=== PATIENT | male | born 1980 | race Caucasian/White ===

== ENCOUNTER 2020-05-06 17:51 | Inpatient (IN) | payer OTHER, SELFPAY ==
[~2020-05-06] VITALS: Ht 167.6 cm; Wt 63.5 kg
[2020-05-06 18:00] VITALS: BP 109/53
--- NOTE | 2020-05-06 18:05 | NUR ---
Pt ambulated to bed 3.
--- NOTE | 2020-05-06 18:13 | NUR ---
39 Y/O MALE C/O FATIGUE/ WEAKNESS/ PALPITATIONS X 1 WEEK PT DENIES PAIN. PT REFFERED HERE FROM URGENT CARE FOR HGB LEVELS AT 5. PT STATES HE WAS HAVING HEAVY RECTAL BLEEDING ABOUT [id number], TODAY LIGHT BLEEDING. PT ABDOMEN IS SOFT, FLAT, NON-TENDER BOWEL SOUNDS ACTIVE X4. LAST BM 05/06/20. PT DENIES N/V, DENIES FEVER/CHILLS. DENIES PMH NKA
--- NOTE | 2020-05-06 18:18 | NUR ---
environmental technician at pt bedside.
[2020-05-06 18:30] LABS: WHITE BLOOD COUNT (AUTO) 3.2 K/uL (4.8-10.8)
[2020-05-06 18:39] LABS: MEAN CORPUSCULAR HEMOGLOBIN 18 pg (27-31); MEAN CORPUSCULAR HGB CONC 29 g/dL (33-37); MEAN CORPUSCULAR VOLUME 60.9 fL (80-94); PLATELET COUNT (AUTO) 249 K/uL (140-450); RED BLOOD CELL COUNT(AUTO) 3.09 MIL/uL (4.20-6.10); RED CELL DISTRIBUTION WIDTH 17.7 % (11.6-13.7)
[2020-05-06 18:45] LABS: ALBUMIN 3.8 g/dL (3.4-5.0); CREATININE 0.8 mg/dL (0.6-1.3); TOTAL BILIRUBIN 0.3 mg/dL (0.0-1.0)
[2020-05-06 18:53] LABS: HEMOGLOBIN 5.5 g/dL (12.0-18.0)
[2020-05-06 18:54] LABS: HEMATOCRIT 18.8 % (36-52)
[2020-05-06] MEDS ORDERED: NACL 0.9% 1,000 ML IV ONE (18:55)
[2020-05-06] MEDS ORDERED: PANTOPRAZOLE 40 MG INJ VIAL IVP ONE (18:55)
[2020-05-06] MEDS ORDERED: MORPHINE SULFATE 2 MG/ML SYR IVP PRN (19:25)
[2020-05-06] MEDS ORDERED: LORazepam 2 MG/ML VIAL IM/IVP PRN (19:25)
[2020-05-06] MEDS ORDERED: ACETAMINOPHEN 325 MG TAB PO PRN (19:25)
[2020-05-06] MEDS ORDERED: ZOLPIDEM 5 MG TAB PO PRN (19:25)
[2020-05-06] MEDS ORDERED: DOCUSATE SODIUM 100 MG GELCAP PO PRN (19:25)
[2020-05-06] MEDS ORDERED: HYDROcodone/APAP 5/325 MG 1 TAB TAB PO PRN (19:25)
[2020-05-06] MEDS ORDERED: ONDANSETRON 4 MG/2 ML VIAL IVP PRN (19:25)
--- NOTE | 2020-05-06 19:28 | NUR ---
Gave report to DIANELYS [place], transfer of care at this time.
--- NOTE | 2020-05-06 19:38 | NUR ---
KAYCE MANCILLA SENT TO LAB
--- NOTE | 2020-05-06 19:40 | NUR ---
RECEIVED IN BED 3 AWAKE AND ALERT. DENIES PAIN OR DISCOMFORT. 20G SL INTACT TO RIGHT A/C, BLOOD TRANSFUSION CONSENT SIGNED
[2020-05-06 19:44] LABS: PROTHROMBIN TIME 10.1 secs (10.8-13.4)
[2020-05-06 19:48] LABS: LYMPHOCYTES % (MANUAL) 8 % (20-46); MONOCYTES % (MANUAL) 1 % (5-12)
[2020-05-06 20:41] LABS: FREE T4 (FREE THYROXINE) 0.87 ng/dL (0.76-1.46); MAGNESIUM 2.1 mg/dL (1.8-2.4); PHOSPHORUS 3.3 mg/dL (2.5-4.9); THYROID STIMULATING HORMONE 0.53 uIU/mL (0.34-3.74)
--- NOTE | 2020-05-06 20:50 | NUR ---
ROOM AVAILABLE, 119B. REPORT CALLED TO DIANELYS WANG
--- NOTE | 2020-05-06 21:05 | NUR ---
to room 119B. Belongings list completed. Report to DIANELYS WANG. PC'S CONTINUE WITH NO ADVERSE RXN NOTED. ATTACHED TO DISPOSITION CLERK ACCOMPANIED BY JEAN CLAUDE AND RN
[2020-05-06 21:15] VITALS: BP 117/69
--- NOTE | 2020-05-06 21:15 | NUR ---
PT ARRIVED TO THE UNIT VIA GURNEY WITH TECH AND WEB CONSULTANT AT BEDSIDE. PT AMBULATED TO THE BED, GAIT WAS STEADY. TELE BOX PLACED ON PT. A&OX4, SPEAKING APPROPRIATELY. [place]ORE[place] SPEAKING, BUT UNDERSTANDS SOME [place]. BREATHING IS UNLABORED ON RA. O2 SAT IS 100%. NO RESPIRATORY DISTRESS NOTED. PT DENIES ANY PAIN. ABDOMEN IS SOFT AND NONTENDER. BOWEL SOUNDS ARE PRESENT IN ALL QUADRANTS. PT STATES HE HAS HAD RECTAL BLEEDING FOR 6 MONTHS BUT CONTINUOUSLY FOR THE PAST 2 WEEKS. PT ALSO STATES HE HAD A BM ABOUT 4 HOURS AGO. SKIN IS WARM, DRY, AND INTACT. IV IS IN THE RIGHT AC 20 GAUGE WITH ONE UNIT OF PRBC INFUSING. NO DISTRESS NOTED. WILL CONTINUE TO MONITOR PT. PLAN OF CARE DISCUSSED.
--- NOTE | 2020-05-06 23:31 | NUR ---
ONE UNIT OF BLOOD JUST FINISHED TRANSFUSING. PT DENIES ANY CHILLS, BACK PAIN, NAUSEA, OR RESPIRATORY DISTRESS. BP WAS 115/61, HR 78, RR 20, TEMP 98.4 F, AND 0 FOR PAIN. PT IS STABLE. WILL GO TO LAB TO RETRIEVE THE SECOND UNIT OF BLOOD TO TRANSFUSE.
[2020-05-07] VITALS: BP 115/61
--- NOTE | 2020-05-07 | NUR ---
SECOND UNIT OF PRBC HAS BEEN STARTED THROUGH THE RIGHT AC 20 GAUGE IV. IV IS PATENT AND FLUSHING. BP IS 114/63, HR 80, O2 SAT 100%, RR 18, AND TEMP0 98.1 F. PT IS STABLE. EDUCATION WAS PROVIDED ON NOTIFYING RN IF THE PATIENT FEELS ANY SOB, PAIN, ITCHING, SWELLING, OR BACK ACHES. PT VERBALIZED UNDERSTANDING.
--- NOTE | 2020-05-07 01:25 | NUR ---
BLOOD TRANSFUSION IS STILL INFUSING. THE INFUSION IS ABOUT [facility] DONE. PT IS SLEEPING IN SEMI FOWLERS POSITION. PT DOES NOT APPEAR TO HAVE ANY DISTRESS, CURRENTLY SNORING. VS ARE STABLE.
--- NOTE | 2020-05-07 02:35 | NUR ---
BLOOD TRANSFUSION IS FINISHED. PT IS STABLE AT THIS TIME. DENIES ANY BACK PAIN, ITCHING, SWELLING, OR RESPIRATORY DISTRESS. WILL CONTINUE TO MONITOR PT.
--- NOTE | 2020-05-07 03:00 | NUR ---
PT WAS INFORMED ABOUT THE CT ANGIO OF THE ABDOMEN AND PELVIS. PT ANSWERED THE QUESTIONS ON THE CONTRAST QUESTIONNAIRE. PT SIGNED THE CONSENT AND VERBALIZED UNDERSTANDING.
[2020-05-07] MEDS: DEXT 5% / NACL 0.45% 1,000 ML IV SCH ×3 (03:04→21:04)
[2020-05-07 04:00] VITALS: BP 105/66
--- NOTE | 2020-05-07 05:00 | NUR ---
PT IS ASLEEP, BUT EASILY AWOKEN BY NOISE. PT IS SPEAKING APPROPRIATELY. NO RESPIRATORY DISTRESS NOTED. PT DENIES ANY PAIN. SKIN IS WARM AND DRY. IV IS PATENT AND INFUSING ORDERED. WILL CONTINUE TO MONITOR.
[2020-05-07 05:20] LABS: BASOPHILS % (AUTO) 0.6 % (0.0-2.0); EOSINOPHILS % (AUTO) 0.8 % (0.0-4.0); HEMATOCRIT 23.5 % (36-52); HEMOGLOBIN 7.2 g/dL (12.0-18.0); LYMPHOCYTES # (AUTO) 1.6 K/uL (2.0-11.5); LYMPHOCYTES % (AUTO) 28.1 % (20.5-51.1); MEAN CORPUSCULAR HEMOGLOBIN 20 pg (27-31); MEAN CORPUSCULAR HGB CONC 31 g/dL (33-37); MONOCYTES # (AUTO) 0.5 K/uL (0.8-1.0); MONOCYTES % (AUTO) 8.8 % (1.7-9.3); NEUTROPHILS # (AUTO) 3.4 K/uL (1.8-7.7); NEUTROPHILS % (AUTO) 61.7 % (42.2-75.2); PLATELET COUNT (AUTO) 221 K/uL (140-450); RED BLOOD CELL COUNT(AUTO) 3.62 MIL/uL (4.20-6.10); RED CELL DISTRIBUTION WIDTH 21.2 % (11.6-13.7); WHITE BLOOD COUNT (AUTO) 5.5 K/uL (4.8-10.8)
[2020-05-07 05:56] LABS: CARBON DIOXIDE 24.6 mmol/L (21-32); CREATININE 0.7 mg/dL (0.6-1.3); POTASSIUM 3.6 mmol/L (3.5-5.1)
[2020-05-07 05:59] LABS: MAGNESIUM 2.2 mg/dL (1.8-2.4); PHOSPHORUS 3.5 mg/dL (2.5-4.9)
--- NOTE | 2020-05-07 06:30 | NUR ---
PT IS SLEEPING. BREATHING IS UNLABORED. CHEST RISE AND FALL IS SYMMETRICAL. NO DISTRESS NOTED. WILL CONTINUE TO MONITOR.
--- NOTE | 2020-05-07 07:15 | NUR ---
ENDORSED PT TO DAY SHIFT NURSE FOR CONTINUITY OF CARE. PT IS STABLE AT THIS TIME. PLAN OF CARE DISCUSSED.
--- NOTE | 2020-05-07 07:16 | NUR ---
RECEIVED TRANSFER OF CARE REPORT FROM NIGHT RN FOR CONTINUATION OF CARE.
--- NOTE | 2020-05-07 07:17 | NUR ---
PT FOUND AWAKE RESTING IN BED. PT STATES NO PAIN,L NO DISTRESS, AND NO MEDICAL COMPLAINTS. PT HAS VISIBLE EQUAL RISE AND FALL UPON RESPIRATION. BED LOCKED IN LOWEST POSITION WITH 2 SIDE RAILS UP FOR SAFETY AND CALL LIGHT WITHIN REACH.
[2020-05-07 08:00] VITALS: BP 106/73
--- NOTE | 2020-05-07 08:54 | NUR ---
PATIENT HAS BEEN SCREENED AND CATEGORIZED LOW NUTRITION RISK. PATIENT WILL BE SEEN WITHIN 7 DAYS OF ADMISSION. 05/13/[address]
[2020-05-07] MEDS ORDERED: PANTOPRAZOLE 40 MG INJ VIAL IVP ONE (09:00)
[2020-05-07 10:21] LABS: GAMMA GLUTAMYL TRANSFERASE 28 U/L (7-51); IRON, SERUM 10 ug/dl (50-175)
--- NOTE | 2020-05-07 11:14 | NUR ---
PT FOUND AWAKE RESTING IN SEMI-CID'S POSITION IN BED. PT STATES NO PAIN, NO DISTRESS, AND NO MEDICAL COMPLAINTS. PT HAS VISIBLE EQUAL RISE AND FALL UPON RESPIRATION. BED LOCKED IN LOWEST POSITION WITH 2 SIDE RAILS UP FOR SAFETY AND CALL LIGHT WITHIN REACH.
[2020-05-07 12:00] VITALS: BP 111/74
[2020-05-07] MEDS ORDERED: POTASSIUM CHLORIDE 20% 40 MEQ/15 ML UDC GT SCH (12:00)
--- NOTE | 2020-05-07 12:00 | NUR ---
SOCIAL WORK NOTE: Patient's Orientation Person Situation Place Time Information Provided By PATIENT Comments SW MET WITH PATIENT AT BEDSIDE BUT PATIENT SPOKE GREEK. SW CONTACTED PATIENT'S CELL PHONE: [phone] WITH STONE LATHE OPERATOR DIANE [id number]. Director Of Nurses Registry, Realtionship and Phone Number DARRIN REED [phone] Healthcare Power of Public Works Manager No Does Patient Have a POLST No Identifying Problems No Social Work Triggers Is A Social Work Consult Needed No Mandate Report Filed No Explanation Of Identifying Problems PATIENT IS A 39-YEAR-OLD MALE ADMITTED FOR LOW GI BLEED AND ANEMIA. PATIENT HAS NO REPORTED PMHX. PATIENT DENIED SUBSTANCE ABUSE AND MENTAL HEALTH HX. Admitted From Home Pre-Admission Level Of Functioning Status Independent/Ambulatory Prior Resources/Services Used In Last 12 Months No Prior Resources Used Prior DME No Prior DME Used Dialysis Comments N/A Living Situation Lives With Family House Patient Had Caregiver No Home Support No Caregiver Issues Financial Issues No Known Financial Issue Referral To The Financial Counselor Needed No Factors/Needs No D/C Needs Identified Pt/Rep Participated In Discharge Plan Yes Patient/Family Agress With Discharge Plan Yes Discharge Plan Comments TENTATIVE DISCHARGE PLAN IS FOR PATIENT TO RETURN HOME. DC Plan Status Initiated
--- NOTE | 2020-05-07 12:20 | NUR ---
OR NURSES AT BEDSIDE TO TAKE PATIENT FOR EGD. WILL CONTINUE TO MONITOR WHEN PATIENT BACK ON UNIT.
[2020-05-07] MEDS ORDERED: fentaNYL citrate 0.05 MG/ML VIAL ONE (12:23)
[2020-05-07] MEDS ORDERED: MIDAZOLAM 2 MG/2 ML VIAL ONE (12:23)
[2020-05-07] MEDS ORDERED: diphenhydrAMINE 50 MG/ML VIAL ONE (12:23)
[2020-05-07] MEDS: MIDAZOLAM 2 MG/2 ML VIAL IVP ONE ×2 (12:37→13:08)
[2020-05-07] MEDS: fentaNYL citrate 0.05 MG/ML VIAL IVP ONE ×2 (12:37→13:07)
[2020-05-07] MEDS ORDERED: BOWEL EVACUANT DRINK 4,000 ML PDS PO SCH (13:00)
--- NOTE | 2020-05-07 13:47 | NUR ---
PT FOUND AWAKE RESTING IN BED. PT STATES NO PAIN AND NO DISTRESS. PT HAS VISIBLE EQUAL RISE AND FALL UPON RESPIRATION. PT O2 SATURATION IS 100% ON ROOM AIR. BED LOCKED IN LOWEST POSITION WITH 2 SIDE RAILS UP FOR SAFETY AND CALL LIGHT WITHIN REACH.
--- NOTE | 2020-05-07 14:08 | NUR ---
DC PLANNIN YRS OLD MALE PATIENT WAS ADMITTED FROM HOME WITH A DX OF LOW GI BLEED AND ANEMIA. PT HAS A HX OF HYPERLIPIDEMIA. H/H 5.5/18.8 AFTER TRANSFUSION H/H 7.2/12.[address] LAYTON PERFORMED EGD RESULTED NORMAL UPPER GI NO SOURCE OF GI BLEED AND NO PATHOLOGY OF ANY CONCERN. H PYLORIC NEGATIVE WELL . DC PLAN TO GO HOME WHEN STABLE CM TO FOLLOW
[2020-05-07] MEDS: LACTULOSE 20 GM/30 ML UDC PO SCH ×3 (14:19→21:04)
[2020-05-07] MEDS: SENNA 8.6 MG TAB PO SCH ×2 (14:19→16:39)
[2020-05-07] MEDS ORDERED: MAGNESIUM CITRATE 300 ML BTL PO SCH (15:00)
--- NOTE | 2020-05-07 15:42 | NUR ---
PT FOUND AWAKE RESTING IN BED. PT STATES NO PAIN, NO DISTRESS, AND NO MEDICAL COMPLAINTS. PT HAS VISIBLE EQUAL RISE AND FALL UPON RESPIRATION. BED LOCKED IN LOWEST POSITION WITH 2 SIDE RAILS UP FOR SAFETY AND CALL LIGHT WITHIN REACH.
[2020-05-07 16:00] VITALS: BP 120/81
--- NOTE | 2020-05-07 18:00 | NUR ---
PT FOUND ASLEEP RESTING IN SEMI-CID'S POSITION IN BED. PT HAS VISIBLE EQUAL RISE AND FALL UPON RESPIRATION. NO DISTRESS NOTED. BED LOCKED IN LOWEST POSITION WITH 2 SIDE RAILS UP FOR SAFETY AND CALL LIGHT WITHIN REACH.
--- NOTE | 2020-05-07 19:10 | NUR ---
RECEIVED BEDSIDE REPORT FROM DAY SHIFT NURSE, ERIKA IVORY, FOR CONTINUITY OF CARE. PT IS AWAKE AND ALERT, A&OX4. SPEAKING TAM[place] ON THE PHONE. NO APPARENT RESPIRATORY DISTRESS. ON RA WITH BREATHING UNLABORED. SR ON TELE MONITORING. PT IS AMBULATORY INDEPENDENTLY. SKIN IS WARM, DRY, AND INTACT. IV IS IN THE RIGHT AC 20 GAUGE RUNNING D5 1/2 NS AT 40 ML PER HOUR PER ORDER. PT IS STABLE. PT DENIES PAIN AT THIS TIME. PLAN OF CARE DISCUSSED. STANDARD PRECAUTIONS IN PLACE.
--- NOTE | 2020-05-07 19:20 | NUR ---
TRANSFER OF CARE REPORT PROVIDED TO NIGHT RN.
[2020-05-07 20:00] VITALS: BP 104/59
--- NOTE | 2020-05-07 21:35 | NUR ---
EDUCATION WAS PROVIDED ON IMPORTANCE OF FINISHING BOWEL PREP PRIOR TO COLONOSCOPY TOMORROW. PT HAS ABOUT 800 ML LEFT TO DRINK AND HE VERBALIZED UNDERSTANDING. PT WAS ALSO GIVEN EDUCATION ON BEING NPO EXCEPT MEDS AND PT VERBALIZED UNDERSTANDING. IV FLUIDS ARE INFUSING. IV IS PATENT AND FLUSHING. PT IS STABLE AT THIS TIME. ALL QUESTIONS ANSWERED.
--- NOTE | 2020-05-07 23:00 | NUR ---
ROUNDED ON PT. ENCOURAGE PT TO FINISH BOWEL PREP. PT VERBALIZED UNDERSTANDING. BREATHING IS UNLABORED. PT IS ON RA. IV FLUIDS ARE PATENT AND INFUSING ORDERED. NO DISTRESS NOTED AT THIS TIME.
[2020-05-08] VITALS: BP_SYST 103; BP_SYST 111; BP_DIAS 53; BP_DIAS 70
--- NOTE | 2020-05-08 | NUR ---
PT FINISHED THE REST OF THE BOWEL PREP LIQUID. PT HAS BEEN HAVING FREQUENT EPISODES OF DIARRHEA DUE TO THE BOWEL PREP. ALL LIQUIDS HAVE BEEN REMOVED FROM THE BEDSIDE. PT IS AWARE ABOUT BEING NPO. STILL WAITING FOR PT TO COLLECT URINE IN THE URINAL. PT IS AWARE AND VERBALIZED UNDERSTANDING.
--- NOTE | 2020-05-08 02:00 | NUR ---
PT IS ON THE PHONE, TALKING. NO PAIN OR DISTRESS NOTED. PT IS SITTING UPRIGHT IN BED. ON RA WITH BREATHING UNLABORED. IV FLUIDS ARE INFUSING ORDERED. PT IS STABLE AT THIS TIME,
[2020-05-08 04:00] VITALS: BP 101/63
--- NOTE | 2020-05-08 04:00 | NUR ---
MADE ROUNDS ON PT. HE IS ASLEEP. CHEST RISE AND FALL IS SYMMETRICAL. NO DISTRESS NOTED. PT IS STABLE. BED IN THE LOWEST POSITION AND CALL LIGHT WITHIN REACH.
[2020-05-08 05:57] LABS: BASOPHILS % (AUTO) 0.8 % (0.0-2.0); EOSINOPHILS # (AUTO) 0.1 K/uL (0-0.4); EOSINOPHILS % (AUTO) 1.1 % (0.0-4.0); HEMATOCRIT 25.8 % (36-52); HEMOGLOBIN 7.7 g/dL (12.0-18.0); LYMPHOCYTES % (AUTO) 40.5 % (20.5-51.1); MEAN CORPUSCULAR HEMOGLOBIN 20 pg (27-31); MEAN CORPUSCULAR HGB CONC 30 g/dL (33-37); MEAN CORPUSCULAR VOLUME 65.6 fL (80-94); MONOCYTES # (AUTO) 0.4 K/uL (0.8-1.0); MONOCYTES % (AUTO) 9.1 % (1.7-9.3); NEUTROPHILS # (AUTO) 2.4 K/uL (1.8-7.7); NEUTROPHILS % (AUTO) 48.5 % (42.2-75.2); PLATELET COUNT (AUTO) 243 K/uL (140-450); RED BLOOD CELL COUNT(AUTO) 3.93 MIL/uL (4.20-6.10); RED CELL DISTRIBUTION WIDTH 21.7 % (11.6-13.7); WHITE BLOOD COUNT (AUTO) 4.9 K/uL (4.8-10.8)
--- NOTE | 2020-05-08 06:00 | NUR ---
INSTRUCTED PT TO VOID IN THE URINE SAMPLE CUP BECAUSE THE DOCTOR PLACED AN ORDER FOR URINE. PT VOIDED IN THE CUP AFTER TEN MINUTES AND THE SAMPLE WAS SENT TO THE LAB. PT IS STABLE. DENIES ANY PAIN.
[2020-05-08 06:15] LABS: ANION GAP 12.7 (8-16); CREATININE 0.7 mg/dL (0.6-1.3); POTASSIUM 3.7 mmol/L (3.5-5.1)
[2020-05-08 06:26] LABS: APPEARANCE,URINE CLEAR (CLEAR); BILIRUBIN,URINE NEGATIVE (NEGATIVE); BLOOD, URINE NEGATIVE (NEGATIVE); COLOR,URINE YELLOW (YELLOW); LEUKOCYTE ESTERASE ,URINE NEGATIVE (NEGATIVE); NITRITE, URINE NEGATIVE (NEGATIVE); UGLUCOSE NEGATIVE (NEGATIVE)
[2020-05-08 06:32] LABS: BARBITURATE, URINE NEGATIVE ng/ml (NEG <=200); BENZODIAZEPINE, URINE NEGATIVE ng/mL (NEG <=200); CANNABINOID, URINE NEGATIVE ng/mL (NEG <=50); COCAINE, URINE NEGATIVE ng/mL (NEG <=300); OPIATE, URINE NEGATIVE ng/mL (NEG <=2000); PHENCYCLIDINE SCREEN,URINE NEGATIVE ng/mL (NEG <=25)
--- NOTE | 2020-05-08 07:10 | NUR ---
ENDORSED PT TO DAY SHIFT NURSE FOR CONTINUITY OF CARE. PT IS STABLE AT THIS TIME. PLAN OF CARE DISCUSSED.
--- NOTE | 2020-05-08 07:12 | NUR ---
RECEIVED REPORT FROM NIGHT NURSE FOR CONTINUITY OF CARE. PT IS STABLE. PT AAOX4 AMERICAN SPEAKING. PT ON ROOM AIR, NO SIGNS OF DISTRESS NOTED. PT HAS RAC 20G INFUSING D5 1/2N AT 40 ML/H. SKIN INTACT. SAFETY MEASURES IN PLACE, WILL CONTINUE TO MONITOR
[2020-05-08 08:00] VITALS: BP 114/73
[2020-05-08 08:07] LABS: FOLIC ACID > 20.00 ng/mL (>3.0)
[2020-05-08] MEDS: LACTULOSE 20 GM/30 ML UDC PO SCH ×4 (08:18→20:02)
[2020-05-08] MEDS: SENNA 8.6 MG TAB PO SCH ×3 (08:20→17:00)
--- NOTE | 2020-05-08 08:21 | NUR ---
ADMINISTERED SCHEDULED MEDICATION, MEDICATION EDUCATION PROVIDED. PT TOLERATED WELL. PT IS STABLE, WILL CONTINUE TO MONITOR.
[2020-05-08 09:24] LABS: FERRITIN 1 ng/mL (30 - 400); TRANSFERRIN 437 mg/dL (200 - 370)
--- NOTE | 2020-05-08 10:47 | NUR ---
PT OFF UNIT FOR PROCEDURE
[2020-05-08] MEDS ORDERED: MIDAZOLAM 5 MG/5 ML VIAL ONE (11:11)
[2020-05-08] MEDS ORDERED: fentaNYL citrate 0.05 MG/ML VIAL ONE (11:11)
[2020-05-08] MEDS ORDERED: diphenhydrAMINE 50 MG/ML VIAL ONE (11:11)
[2020-05-08] MEDS ORDERED: fentaNYL citrate 0.05 MG/ML VIAL IVP ONE (12:00)
[2020-05-08] MEDS ORDERED: MIDAZOLAM 2 MG/2 ML VIAL IVP ONE (12:00)
[2020-05-08] MEDS ORDERED: SIMETHICONE 40 MG/0.6 ML PO ONE (12:00)
[2020-05-08 12:15] VITALS: BP 98/64
[2020-05-08] MEDS ORDERED: SIMETHICONE 40 MG/0.6 ML ONE (13:11)
--- NOTE | 2020-05-08 13:30 | NUR ---
ADMINISTERED SCHEDULED MEDICATION, MEDICATION EDUCATION PROVIDED. PT TOLERATED WELL. PT IS STABLE, WILL CONTINUE TO MONITOR
--- NOTE | 2020-05-08 14:56 | NUR ---
BY STANDING BY BED. PT IS STABLE, WILL CONTINUE TO MONITOR.
[2020-05-08 16:00] VITALS: BP 108/57
--- NOTE | 2020-05-08 16:16 | NUR ---
RECEIVED TORB FOR PT TO HAVE REGULAR HIGH FIBER DIET. WILL INPUT ORDER.
[2020-05-08] MEDS: DEXT 5% / NACL 0.45% 1,000 ML IV SCH (17:20)
--- NOTE | 2020-05-08 17:22 | NUR ---
ADMINISTERED SCHEDULED FLUIDS, MEDS EDUCATION PROVIDED. PT TOLERATED WELL. PT IS STABLE, WILL CONTINUE TO MONITOR.
--- NOTE | 2020-05-08 19:30 | NUR ---
RECEIVED REPORT FROM REJI GOTTI. PT AOX4 ON ROOM AIR. NO S/S RESPIRATORY DISTRESS. NO C/O PAIN AT THIS TIME. IV SITE RAC 20G PATENT INTACT, INFUSING D5 1/2 NS @ 40ML/HR. SAFETY MEASURES IN PLACE. CALL LIGHT WITHIN REACH. WILL CONTINUE TO MONITOR
[2020-05-08 20:00] VITALS: BP 106/63
--- NOTE | 2020-05-08 20:03 | NUR ---
ADMINISTERED SCHEDULED MEDICATION, EDUCATION PROVIDED. NO DISTRESS NOTED. WILL CONTINUE TO MONITOR
[2020-05-09] VITALS: BP 103/58
--- NOTE | 2020-05-09 01:00 | NUR ---
PATIENT RESTING IN BED. DENIES PAIN, DENIES DISCOMFORT. RESPIRATIONS EVEN UNLABORED. NO S/S ACUTE DISTRESS NOTED. BED IN LOW POSITION. CALL LIGHT WITHIN REACH. WILL CONTINUE TO MONITOR
--- NOTE | 2020-05-09 03:05 | NUR ---
PATIENT ASLEEP IN BED. RESPIRATIONS EVEN UNLABORED. NO S/S ACUTE DISTRESS NOTED. CALL LIGHT WITHIN REACH. WILL CONTINUE TO MONITOR
[2020-05-09 04:00] VITALS: BP 98/57
--- NOTE | 2020-05-09 07:15 | NUR ---
ENDORSED PATIENT TO DAY RN FOR CONTINUITY OF CARE. PATIENT IS IN STABLE CONDITION
--- NOTE | 2020-05-09 07:20 | NUR ---
PT RECEIVED FROM BI TESTER RN. PT IN STABLE CONDITION. IV ON LEFT AC IS CLEAR DRY PATENT AND INTACT. NO S/S OF DISTRESS. CALL LIGHT IS WITHIN REACH. ALL SAFETY MEASURES ARE IN PLACE WILL CONTINUE TO MONITOR.
[2020-05-09 08:00] VITALS: BP 108/68
[2020-05-09] MEDS: LACTULOSE 20 GM/30 ML UDC PO SCH (08:53)
[2020-05-09] MEDS: SENNA 8.6 MG TAB PO SCH (08:53)
--- NOTE | 2020-05-09 09:30 | NUR ---
MEDICATIONS GIVEN PER MD ORDER. PT VERBALIZED UNDERSTANDING. PT TOLERATED WELL. NO ADVERSE REACTIONS. NO S/S OF DISTRESS AT THIS TIME.CALL LIGHT IS WITHIN REACH. ALL SAFETY MEASURES ARE IN PLACE WILL CONTINUE TO MONITOR.
--- NOTE | 2020-05-09 10:33 | NUR ---
PT RESTING IN BED. UPDATED BY DR. CHAPA ON PLAN OF CARE. PATIENT VERBALIZED UNDERSTANDING. NO S/S OF DISTRESS AT THIS TIME.CALL LIGHT IS WITHIN REACH. ALL SAFETY MEASURES ARE IN PLACE WILL CONTINUE TO MONITOR.
[2020-05-09 10:36] VITALS: BP 108/68
[2020-05-09] MEDS ORDERED: PSYL0.4C2 PO (10:57)
[2020-05-09] MEDS ORDERED: FERR325E14 PO (10:57)
[2020-05-09] MEDS ORDERED: CEPH250C16 PO (10:57)
[2020-05-09] MEDS ORDERED: DOCU-299 PO (10:57)
[2020-05-09 11:25] LABS: BASOPHILS % (AUTO) 0.9 % (0.0-2.0); EOSINOPHILS % (AUTO) 1.1 % (0.0-4.0); HEMATOCRIT 26.7 % (36-52); HEMOGLOBIN 7.9 g/dL (12.0-18.0); LYMPHOCYTES # (AUTO) 1.1 K/uL (2.0-11.5); LYMPHOCYTES % (AUTO) 25.4 % (20.5-51.1); MEAN CORPUSCULAR HEMOGLOBIN 19 pg (27-31); MEAN CORPUSCULAR HGB CONC 30 g/dL (33-37); MEAN CORPUSCULAR VOLUME 65.4 fL (80-94); MONOCYTES # (AUTO) 0.4 K/uL (0.8-1.0); MONOCYTES % (AUTO) 9.8 % (1.7-9.3); NEUTROPHILS # (AUTO) 2.7 K/uL (1.8-7.7); NEUTROPHILS % (AUTO) 62.8 % (42.2-75.2); PLATELET COUNT (AUTO) 243 K/uL (140-450); RED BLOOD CELL COUNT(AUTO) 4.09 MIL/uL (4.20-6.10); RED CELL DISTRIBUTION WIDTH 21.9 % (11.6-13.7); WHITE BLOOD COUNT (AUTO) 4.3 K/uL (4.8-10.8)
[2020-05-09 11:38] LABS: ANION GAP 12.9 (8-16); CARBON DIOXIDE 27.9 mmol/L (21-32); CREATININE 0.8 mg/dL (0.6-1.3); POTASSIUM 3.8 mmol/L (3.5-5.1)
[2020-05-09 11:43] LABS: MAGNESIUM 1.9 mg/dL (1.8-2.4); PHOSPHORUS 3.6 mg/dL (2.5-4.9)
--- NOTE | 2020-05-09 12:25 | NUR ---
PT LEFT HOME. IV REMOVED AND WAS INTACT. MEDICAL BANDS REMOVED. PT EDUCATED ABOUT DIET, HOSPITALIZATION AND FOLLOW UP VISITS AND MEDICATION PT VERBALIZED UNDERSTANDING. NO S/S OF DISTRESS. PT VERBALIZED HE IS READY TO LEAVE. TELE-BOX REMOVED AND RETURNED. PT ABLE TO DRESS SELF AND GATHER ALL BELONGINGS. PT STABLE.
== END 2020-05-09 12:30 | disposition home or self-care (01) | DRG 379 ==
LOC: MED 17:51 → MTU 19:25
PROVIDERS: ADMIT Family Medicine; ATTEND Family Medicine
PROC: 30233N1 Transfusion of Nonautologous Red Blood Cells into Peripheral Vein, Percutaneous Approach (ICD-10-PCS; 2020-05-06)
PROC: 0DB68ZX Excision of Stomach, Via Natural or Artificial Opening Endoscopic, Diagnostic (ICD-10-PCS; principal; 2020-05-07 13:00)
PROC: 0DJD8ZZ Inspection of Lower Intestinal Tract, Via Natural or Artificial Opening Endoscopic (ICD-10-PCS; 2020-05-08)
DX: K92.2 Gastrointestinal hemorrhage, unspecified (principal); D50.9 Iron deficiency anemia, unspecified; E78.5 Hyperlipidemia, unspecified; E78.00 Pure hypercholesterolemia, unspecified; K64.8 Other hemorrhoids; E86.0 Dehydration; Z83.3 Family history of diabetes mellitus; Z20.822 Contact with and (suspected) exposure to COVID-19
CPT/HCPCS: 36415; 36430; 71045; 80048; 80053; 80305; 81003; 82150; 82607; 82728; 82746; 82977; 83036; 83540; 83690; 83735; 83880; 84100; 84439; 84443; 84484; 85025; 85045; 85610; 85730; 86677; 86886; 86900; 86901; 86920; 87081; 96374; 99285; C9113; J1200; J2250; J3010; J7030; J7042; P9016